=== PATIENT | male | born 1990 | race American Indian/Alaskan Native ===

== ENCOUNTER 2022-03-17 19:13 | Emergency (ER) | payer SELFPAY ==
[2022-03-18] MEDS ORDERED: DOXYCYCLINE 100 MG CAP PO ONE (02:57)
--- NOTE | 2022-03-18 03:13 | Emergency Department Report ---
ED General Adult HPI - General Chief complaint: Skin Rash Stated complaint: BACK PAIN/RASH/DIARRHEA Time Seen by Provider: 03/18/22 02:43 Source: patient Mode of arrival: Ambulatory Limitations: No Limitations - History of Present Illness Initial comments: Is a 32-year-old male who presents with mother for rash to penile shaft and glans penis. Patient states drainage no dysuria frequency urgency no hematuria. No fall injury or trauma. Symptoms includes itching and irritation. Patient denies penile discharge. Denies sexual activities. As I am not sexually active for the past 3 years. Patient denies fevers or chills. There is no back or lower abdominal pain there is been no nausea or vomiting. Symptoms include tingling and itching. Symptoms are exacerbated by itch scratch cycle. Symptoms are relieved by nothing tried. - Related Data Previous Rx's Medication Instructions Recorded Last Taken Type Ranitidine HCl [Zantac] 300 mg PO QDAY #15 tablet 10/28/13 Unknown Rx Omeprazole Magnesium [PriLOSEC Otc] 20 mg PO QDAY #14 tablet. 08/06/16 Unknown Rx traMADoL [Ultram 50 MG tab] 50 mg PO Q6HR PRN #10 tablet 09/10/16 Unknown Rx Clotrimazole [Clotrimazole AF] 1 applicatio TP BID 7 Days #1 tube 03/18/22 Unknown Rx Doxycycline Hyclate [Doxycycline 100 mg PO BID 7 Days #14 tab 03/18/22 Unknown Rx Hyclate TAB] Allergies Allergy/AdvReac Type Severity Reaction Status Date / Time Penicillins Allergy Hives Verified 09/10/16 14:05 ED Review of Systems ROS: Stated complaint: BACK PAIN/RASH/DIARRHEA Other details as noted in HPI Constitutional: denies: chills, fever Eyes: denies: eye pain, eye discharge, vision change ENT: denies: ear pain, throat pain Respiratory: denies: cough, shortness of breath, wheezing Cardiovascular: denies: chest pain, palpitations Endocrine: no symptoms reported Gastrointestinal: denies: abdominal pain, nausea, diarrhea Genitourinary: other. denies: urgency, dysuria, frequency, discharge, testicular pain, testicular mass Musculoskeletal: denies: back pain, joint swelling, arthralgia Skin: denies: rash, lesions Neurological: denies: headache, weakness, paresthesias Psychiatric: denies: anxiety, depression Hematological/Lymphatic: denies: easy bleeding, easy bruising ED Past Medical Hx - Past Medical History Hx GERD: Yes Hx Asthma: Yes - Surgical History Hx Breast Surgery: Yes (BREAST REDUCTION) - Social History Smoking Status: Never Smoker Substance Use Type: None - Medications Home Medications: Home Medications Medication Instructions Recorded Confirmed Last Taken Type Ranitidine HCl [Zantac] 300 mg PO QDAY #15 tablet 10/28/13 08/06/16 Unknown Rx Omeprazole Magnesium [PriLOSEC Otc] 20 mg PO QDAY #14 tablet.dr 08/06/16 Unknown Rx traMADoL [Ultram 50 MG tab] 50 mg PO Q6HR PRN #10 tablet 09/10/16 Unknown Rx Clotrimazole [Clotrimazole AF] 1 applicatio TP BID 7 Days #1 tube 03/18/22 Unknown Rx Doxycycline Hyclate [Doxycycline 100 mg PO BID 7 Days #14 tab 03/18/22 Unknown Rx Hyclate TAB] ED Physical Exam - General Limitations: No Limitations General appearance: alert, in no apparent distress - Head Head exam: Present: atraumatic, normocephalic - Eye Eye exam: Present: EOMI Pupils: Present: normal accommodation - ENT ENT exam: Present: mucous membranes moist - Neck Neck exam: Present: normal inspection - Respiratory Respiratory exam: Present: normal lung sounds bilaterally. Absent: respiratory distress, wheezes - Cardiovascular Cardiovascular Exam: Present: regular rate, normal rhythm, normal heart sounds. Absent: systolic murmur, diastolic murmur, rubs, gallop - GI/Abdominal GI/Abdominal exam: Present: soft, normal bowel sounds. Absent: distended, tend erness, guarding, rebound, rigid, bruit, hernia - Rectal Rectal exam: Present: deferred - exam: Present: circumcision, other (Rash to glans penis there is no open lesions no pain. No penile discharge). Absent: testicular tenderness, urethral discharge, scrotal swelling, vertical testicular lie External exam: Present: erythema, other (dry flaky ). Absent: swelling, lesions, lacerations, ecchymosis, bleeding - Extremities Exam Extremities exam: Present: normal inspection, full ROM, normal capillary refill - Back Exam Back exam: Present: normal inspection, full ROM. Absent: CVA tenderness (R), CVA tenderness (L) - Neurological Exam Neurological exam: Present: alert, oriented X3, CN II-XII intact, normal gait - Psychiatric Psychiatric exam: Present: normal affect, normal mood - Skin Skin exam: Present: warm, dry, intact, normal color. Absent: rash ED Course Vital Signs 03/17/22 20:20 Temperature 98.3 F Pulse Rate 100 H Respiratory 18 Rate Blood Pressure 153/92 O2 Sat by Pulse 100 Oximetry ED Medical Decision Making - Medical Decision Making Is no noted penile discharge there is mild dry flaky rash to glans penis this is likely balanitis plan treat for same. Patient is not sexually active however. Patient be DC'd home with prescriptions at this time. Patient will follow primary care doctor in 2 to 3 days. Patient return to emergency department should symptoms worsen. Patient verbalizes agreement and understanding with discharge plan. Patient DC'd home in stable condition at this time Critical care attestation.: If time is entered above; I have spent that time in minutes in the direct care of this critically ill patient, excluding procedure time. ED Disposition Clinical Impression: Balanitis Disposition: 01 HOME / SELF CARE / HOMELESS Is pt being admited?: No Does the pt Need Aspirin: No Condition: Stable Instructions: Balanitis Additional Instructions: Take medications as prescribed, follow-up with your doctor in 2 to 3 days. Avoid alcohol while taking this medication return to emergency department should symptoms worsen Prescriptions: Clotrimazole [Clotrimazole AF] 1 applicatio TP BID 7 Days #1 tube Doxycycline Hyclate [Doxycycline Hyclate TAB] 100 mg PO BID 7 Days #14 tab Referrals: [facility] [Provider Group] - 3-5 Days Forms: Work/School Release Form(ED) Time of Disposition: 03:20
[2022-03-18 03:42] VITALS: BP 145/87
== END 2022-03-18 04:19 | disposition home or self-care (01) ==
LOC: ED 19:13
DX: N48.1 Balanitis (principal); K21.9 Gastro-esophageal reflux disease without esophagitis; J45.909 Unspecified asthma, uncomplicated; Z88.0 Allergy status to penicillin; Z79.899 Other long term (current) drug therapy
CPT/HCPCS: 99282